=== PATIENT | female | born 1975 | race Two or more races ===

== ENCOUNTER 2025-03-14 19:58 | Inpatient (IN) | payer MEDICAID, OTHER ==
[~2025-03-14] VITALS: Ht 160 cm; Wt 70.8 kg
[2025-03-14 20:39] LABS: BASOPHILS % (AUTO) 0.1 % (0.0-2.0); EOSINOPHILS # (AUTO) 0.1 K/uL (0.0-0.7); EOSINOPHILS % (AUTO) 1.6 % (0.0-6.0); HEMATOCRIT 40 % (33-45); HEMOGLOBIN 13.2 g/dL (11.5-14.8); LYMPHOCYTES # (AUTO) 1.9 K/uL (0.8-4.8); LYMPHOCYTES % (AUTO) 29.2 % (20.0-44.0); MEAN CORPUSCULAR HEMOGLOBIN 27 PG (26.0-33.0); MEAN CORPUSCULAR HGB CONC 33 g/dl (31.0-36.0); MEAN CORPUSCULAR VOLUME 80 fL (82-100); MONOCYTES # (AUTO) 0.3 K/uL (0.1-1.30); MONOCYTES % (AUTO) 4.3 % (2.0-12.0); NEUTROPHILS # (AUTO) 4.1 K/uL (1.8-8.9); NEUTROPHILS % (AUTO) 64.8 % (43.0-81.0); PLATELET COUNT (AUTO) 160 K/uL (150-450); RED BLOOD CELL COUNT(AUTO) 4.98 MIL/uL (4.0-5.2); RED CELL DISTRIBUTION WIDTH 13.7 % (11.5-15.0); WHITE BLOOD COUNT (AUTO) 6.4 K/uL (4.3-11.0)
[2025-03-14 20:53] LABS: CALCIUM, SERUM 9.2 mg/dL (8.5-10.1); CREATININE 0.8 mg/dL (0.6-1.3); POTASSIUM 3.7 mmol/L (3.5-5.1)
[2025-03-14 21:36] LABS: APPEARANCE,URINE CLEAR (CLEAR); BILIRUBIN,URINE NEGATIVE (NEGATIVE); BLOOD, URINE NEGATIVE Ery/uL (NEGATIVE); COLOR,URINE YELLOW (YELLOW); KETONES,URINE NEGATIVE (NEGATIVE); LEUKOCYTE ESTERASE ,URINE 1+ (NEGATIVE); NITRITE, URINE NEGATIVE (NEGATIVE); PROTEIN,URINE NEGATIVE (NEGATIVE); UGLUCOSE NEGATIVE (NEGATIVE); UROBILINOGEN,URINE 0.2 EU/dL (0.2)
[2025-03-14 21:44] LABS: PREGNANCY TEST URINE QUAL NEGATIVE (NEGATIVE)
[2025-03-14] MEDS ORDERED: ACETAMINOPHEN ES 500 MG TABLET ONE (21:45)
[2025-03-14 21:47] LABS: ADD URINE CULTURE YES; BACTERIA,URINE 2+ /HPF (None Seen); RBC,URINE NONE SEEN /HPF (0-2)
[2025-03-14] MEDS: ACETAMINOPHEN ES 500 MG TABLET PO ONE (21:57)
[2025-03-14] MEDS ORDERED: NAPR-1009 PO (22:29)
[2025-03-14] MEDS ORDERED: ACET-2605 PO (22:29)
[2025-03-14] MEDS ORDERED: LEVETIRACETAM (500MG) 500 MG/5 ML VIAL IV ONE (23:41)
[2025-03-14] MEDS: LEVETIRACETAM (500MG) 500 MG in IV NS 0.9% 100 ML IV SCH (23:53)
[2025-03-15] MEDS: CEFTRIAXONE 1GM BAG (ER ONLY) 50 ML IV ONE (01:15)
[2025-03-15] MEDS: CEFTRIAXONE 1 G in IV D5W 50 ML IV SCH ×2 (01:16→23:52)
[2025-03-15 01:36] VITALS: BP 103/79; TEMP 98.4; O2SAT 100
[2025-03-15 04:00] VITALS: BP 93/64; TEMP 98.1
[2025-03-15] MEDS: PANTOPRAZOLE 40 MG TABLET.DR PO SCH (06:59)
[2025-03-15] MEDS: BLOOD SUGAR DIAGNOSTIC 1 EACH STRIP IN SCH (07:02)
[2025-03-15 08:00] VITALS: BP 98/62; TEMP 98; O2SAT 97
[2025-03-15 08:14] LABS: BASOPHILS % (AUTO) 0.1 % (0.0-2.0); EOSINOPHILS # (AUTO) 0.1 K/uL (0.0-0.7); EOSINOPHILS % (AUTO) 1.2 % (0.0-6.0); HEMATOCRIT 39 % (33-45); HEMOGLOBIN 12.8 g/dL (11.5-14.8); LYMPHOCYTES % (AUTO) 33.7 % (20.0-44.0); MEAN CORPUSCULAR HEMOGLOBIN 26 PG (26.0-33.0); MEAN CORPUSCULAR HGB CONC 33 g/dl (31.0-36.0); MEAN CORPUSCULAR VOLUME 79 fL (82-100); MONOCYTES # (AUTO) 0.3 K/uL (0.1-1.30); MONOCYTES % (AUTO) 5.3 % (2.0-12.0); NEUTROPHILS # (AUTO) 3.6 K/uL (1.8-8.9); NEUTROPHILS % (AUTO) 59.7 % (43.0-81.0); PLATELET COUNT (AUTO) 154 K/uL (150-450); RED CELL DISTRIBUTION WIDTH 14.1 % (11.5-15.0); WHITE BLOOD COUNT (AUTO) 6.1 K/uL (4.3-11.0)
[2025-03-15 08:26] LABS: CREATININE 0.7 mg/dL (0.6-1.3); POTASSIUM 3.8 mmol/L (3.5-5.1)
[2025-03-15] MEDS: LEVETIRACETAM (500MG) 500 MG in IV NS 0.9% 100 ML IV SCH (08:58)
[2025-03-15] MEDS: ASPIRIN 81 MG TAB.CHEW PO SCH (08:58)
[2025-03-15 12:00] VITALS: BP 101/66; TEMP 98.5; O2SAT 97
[2025-03-15] MEDS: METOCLOPRAMIDE HCL 10 MG/2 ML VIAL IV ONE (14:54)
[2025-03-15] MEDS: diphenhydrAMINE HCL 50 MG/ML VIAL IV ONE (14:54)
[2025-03-15] MEDS ORDERED: IOHEXOL-350 100 ML VIAL IV ONE (15:41)
[2025-03-15] MEDS ORDERED: IV NS 0.9% 250 ML IV ONE (15:42)
[2025-03-15 16:00] VITALS: BP 92/66; TEMP 97.8; O2SAT 97
[2025-03-15 20:00] VITALS: BP 102/69; TEMP 97.9; O2SAT 97
[2025-03-15] MEDS: SIMVASTATIN 20 MG TABLET PO SCH (21:18)
[2025-03-16] VITALS: BP 101/70; TEMP 98.2; O2SAT 97
[2025-03-16 04:00] VITALS: BP 109/72; TEMP 97.7; O2SAT 99
[2025-03-16 08:24] VITALS: BP 96/52; TEMP 98.2; O2SAT 99
[2025-03-16 10:20] LABS: BASOPHILS % (AUTO) 0.4 % (0.0-2.0); EOSINOPHILS # (AUTO) 0.1 K/uL (0.0-0.7); EOSINOPHILS % (AUTO) 2.2 % (0.0-6.0); HEMATOCRIT 40 % (33-45); HEMOGLOBIN 13.1 g/dL (11.5-14.8); LYMPHOCYTES # (AUTO) 2.1 K/uL (0.8-4.8); LYMPHOCYTES % (AUTO) 43.2 % (20.0-44.0); MEAN CORPUSCULAR HEMOGLOBIN 26 PG (26.0-33.0); MEAN CORPUSCULAR HGB CONC 33 g/dl (31.0-36.0); MEAN CORPUSCULAR VOLUME 80 fL (82-100); MONOCYTES # (AUTO) 0.2 K/uL (0.1-1.30); NEUTROPHILS # (AUTO) 2.4 K/uL (1.8-8.9); NEUTROPHILS % (AUTO) 49.2 % (43.0-81.0); PLATELET COUNT (AUTO) 141 K/uL (150-450); RED BLOOD CELL COUNT(AUTO) 5.03 MIL/uL (4.0-5.2); RED CELL DISTRIBUTION WIDTH 14.1 % (11.5-15.0); WHITE BLOOD COUNT (AUTO) 4.9 K/uL (4.3-11.0)
[2025-03-16 10:23] LABS: CALCIUM, SERUM 9.1 mg/dL (8.5-10.1); CREATININE 0.6 mg/dL (0.6-1.3); MAGNESIUM 2.4 mg/dL (1.8-2.4); PHOSPHORUS 4.2 mg/dL (2.5-4.9); POTASSIUM 3.7 mmol/L (3.5-5.1)
[2025-03-16 12:00] VITALS: BP 135/83; TEMP 98.2; O2SAT 99
[2025-03-16] MEDS ORDERED: ATOR80TA PO (12:36)
[2025-03-16] MEDS ORDERED: ASPI-1420 PO (12:36)
[2025-03-16] MEDS ORDERED: LEVE500T9 PO (12:36)
[2025-03-16 16:00] VITALS: BP 100/69; TEMP 98; O2SAT 98
[2025-03-16] MEDS: HYDROCODONE/APAP 5/325MG TABLET PO ONE (16:15)
== END 2025-03-16 17:28 | disposition home or self-care (01) | DRG 53 ==
LOC: ER 20:00 → EDBD 20:00 → TELE 23:15 → TELE1 23:28 → MEDSG1 03-16 10:11 → TELE1 03-16 10:42
PROVIDERS: ADMIT Nurse Practitioner Acute Care; ATTEND Nurse Practitioner Family
DX: G40.909 Epilepsy, unspecified, not intractable, without status epilepticus (principal); I63.341 Cerebral infarction due to thrombosis of right cerebellar artery; G92.8 Other toxic encephalopathy; N10 Acute pyelonephritis; E87.20 Acidosis, unspecified; B96.89 Other specified bacterial agents as the cause of diseases classified elsewhere; E11.9 Type 2 diabetes mellitus without complications; E66.9 Obesity, unspecified; E78.00 Pure hypercholesterolemia, unspecified; I10 Essential (primary) hypertension; N39.0 Urinary tract infection, site not specified; I25.10 Atherosclerotic heart disease of native coronary artery without angina pectoris; S00.81XA Abrasion of other part of head, initial encounter; W19.XXXA Unspecified fall, initial encounter; Y92.521 Bus station as the place of occurrence of the external cause; M81.0 Age-related osteoporosis without current pathological fracture; K57.30 Diverticulosis of large intestine without perforation or abscess without bleeding; Z68.36 Body mass index [BMI] 36.0-36.9, adult; R29.703 NIHSS score 3
CPT/HCPCS: 36415; 70450-TC; 70496-TC; 70498-TC; 80048-TC; 80061-TC; 81001; 82962-TC; 83735-TC; 84100-TC; 84703-TC; 85025-TC; 87086-TC; 92526; 92611-TC; 93307-TC; 97110-TC; 97112-TC; 97116-TC; 97530-TC; 97535-TC; A4223; G0378; J0696; J1200; J1953; J2765; J7030; J7040; J7050; J7060; Q9967